=== PATIENT | male | born 1975 | race Two or more races ===

== ENCOUNTER 2021-09-29 20:31 | Emergency (ER) | payer OTHER ==
[~2021-09-29] VITALS: Ht 190.5 cm; Wt 141.1 kg
[2021-09-29] MEDS ORDERED: ADDERALL 20 MG20 MG (20:48)
[2021-09-29] MEDS ORDERED: LISINOPRIL-HCT1 EACH PO (20:48)
== END 2021-09-29 22:07 | disposition home or self-care (01) ==
LOC: ER 20:31
DX: M72.2 Plantar fascial fibromatosis (principal); I10 Essential (primary) hypertension; Z88.6 Allergy status to analgesic agent; Z91.013 Allergy to seafood

== ENCOUNTER 2023-01-11 07:11 | Emergency (ER) | payer OTHER ==
[~2023-01-11] VITALS: Ht 190.5 cm; Wt 147.4 kg
[~2023-01-11 07:11] MED LIST: ADDERALL 20 MG20 MG; LISINOPRIL-HCT1 EACH PO
[2023-01-11] MEDS ORDERED: FLONASE ALLERG9.9 ML NASAL (15:21)
[2023-01-11] MEDS ORDERED: ZYRTEC10 M3 PO (15:21)
== END 2023-01-11 15:54 | disposition home or self-care (01) ==
LOC: ER 07:11
PROVIDERS: General Practice
DX: J10.1 Influenza due to other identified influenza virus with other respiratory manifestations (principal); R31.9 Hematuria, unspecified; Z20.822 Contact with and (suspected) exposure to COVID-19